=== PATIENT | female | born 1980 | race Caucasian/White ===

== ENCOUNTER 2021-02-25 06:10 | Inpatient (IN) | payer OTHER ==
[2021-02-25] MEDS ORDERED: CITRIC ACID/SODIUM CITRATE 30 ML UNIT-DOSE CUP PO ONE (06:20)
[2021-02-25] MEDS ORDERED: ELECTROLYTE-148 SOLN 500 ML IV SCH ×2 (06:20→06:50)
[2021-02-25 06:35] VITALS: BMI 35.4
[2021-02-25] MEDS ORDERED: BUPIVACAINE HCL/PF 0.5% (5MG/ML) 10 ML VIAL ONE (08:34)
[2021-02-25] MEDS ORDERED: morphine SULFATE/PF 1 MG/2 ML (2cc Syringe - QUVA) ONE (08:37)
[2021-02-25] MEDS ORDERED: ELECTROLYTE-148 SOLN 500 ML IV ONE (09:52)
[2021-02-25] MEDS ORDERED: METHYLERGONOVINE MALEATE 0.2 MG/1 ML AMP IM PRN (09:54)
[2021-02-25] MEDS ORDERED: IBUPROFEN 800 MG/8 ML IJ IVPB PRN (09:54)
[2021-02-25] MEDS ORDERED: ACETAMINOPHEN 325 MG TABLET (FP) PO PRN (09:54)
[2021-02-25] MEDS ORDERED: SENNOSIDES/DOCUSATE COMBO (SENNA PLUS) TABLET (UD) PO PRN (09:54)
[2021-02-25] MEDS ORDERED: ELECTROLYTE-148 SOLN 1,000 ML IV SCH (10:00)
[2021-02-25] MEDS ORDERED: OXYTOCIN 20 UNITS in 0.9% NS 20 UNIT/1,000 ML INFUS.BAG IV SCH (10:00)
[2021-02-25] MEDS ORDERED: oxyCODONE HCL 5 MG TABLET PO PRN ×2 (21:55)
[2021-02-26] MEDS: SIMETHICONE 80 MG TAB.CHEW (FP) PO PRN ×3 (08:25→18:34)
[2021-02-26] MEDS: IBUPROFEN 600 MG TABLET (FP) PO PRN ×3 (08:25→18:34)
[2021-02-26] MEDS ORDERED: BISACODYL 10 MG SUPP.RECT RC PRN (09:55)
[2021-02-26 10:35] LABS: BASO % 0.3 % (0-2.0); HEMATOCRIT 32.3 % (32.4-45.2); HEMOGLOBIN 11.1 GM/dL (10.7-15.3); LYMPH % 16.4 % (8-40); MCHC 34.3 g/dl (32.0-36.0); MEAN CELL VOLUME 93.5 fl (80-96); MEAN PLT VOLUME 11.5 fl (7.5-11.1); MONO % 4.2 % (3.8-10.2); NEUT % 78.1 % (42.8-82.8); PLATELET COUNT 143 10^3/uL (134-434); RBC 3.45 M/mm3 (3.60-5.2); RDW 13.5 % (11.6-15.6); WHITE BLOOD COUNT 10.1 K/mm3 (4.0-10.0)
[2021-02-27] MEDS: SIMETHICONE 80 MG TAB.CHEW (FP) PO PRN (00:20)
[2021-02-27] MEDS: IBUPROFEN 600 MG TABLET (FP) PO PRN (00:20)
[2021-02-27 11:24] VITALS: BP 118/77; PULSE 80; TEMP 98.8
[2021-02-28 13:29] LABS: HIV INTERPRETATION NEGATIVE (NEGATIVE)
== END 2021-02-27 11:40 | disposition home or self-care (01) | DRG 540 ==
LOC: JLDR 06:10 → J3W 10:50
PROVIDERS: ADMIT Obstetrics & Gynecology; ATTEND Obstetrics & Gynecology
PROC: 10D00Z1 Extraction of Products of Conception, Low, Open Approach (ICD-10-PCS; principal; 2021-02-25)
DX: O41.03X0 Oligohydramnios, third trimester, not applicable or unspecified (principal); O99.42 Diseases of the circulatory system complicating childbirth; I49.9 Cardiac arrhythmia, unspecified; O34.211 Maternal care for low transverse scar from previous cesarean delivery; Z3A.38 38 weeks gestation of pregnancy; Z37.0 Single live birth
CPT/HCPCS: 36415; 85025; 87389; 88307-TC